=== PATIENT | female | born 1975 | race Hispanic/Latino ===

== ENCOUNTER 2017-02-12 22:23 | Emergency (ER) | payer SELFPAY ==
[2017-02-12 22:44] VITALS: O2SAT 95
--- NOTE | 2017-02-13 00:33 | CT ---
PROCEDURE: Soft Tissue Neck w/Contrast CLINICAL HISTORY: 41 years Female Left facial pain/hx of myelitis COMPARISON: None. TECHNIQUE: Contiguous axial images obtained through the neck following IV contrast. Reformatted images obtained. This exam was performed according to our department optimization program which includes automated exposure control, adjustment of the mA and/or kv according to patient size and/or use of iterative reconstruction technique. FINDINGS: No fluid collection to suggest an abscess is visualized. The visualized intracranial structures and post septal orbits appear grossly unremarkable. The parotid glands, submandibular glands and thyroid gland appear unremarkable. The lung apices are clear. The pharynx and larynx appear unremarkable. Scattered lymph nodes in the neck likely reactive. No enlarged nodes or mass lesions are identified. Dental mook is visualized within the first left-sided maxillary premolar tooth. No fluid or significant mucosal thickening in the visualized paranasal sinuses. IMPRESSION: Dental mook within the first left-sided maxillary premolar tooth. Electronically signed by: Wilmer Aguayo MD 02/13/2017 12:32 AM CDT
[2017-02-13] MEDS ORDERED: INSULIN, REG.(HUMAN) 100 U/ML VIAL SUBCU ONE (00:40)
[2017-02-13] MEDS ORDERED: CLINDAMYCIN HCL CAP 150 MG CAP PO ONE (00:41)
--- NOTE | 2017-02-13 00:45 | ED.PDOC ---
History of Present Illness - General Chief Complaint: General Stated Complaint: L Sided Facial Pain Time Seen by Provider: 02/12/17 23:26 Source: patient, RN notes reviewed, Vital Signs reviewed Exam Limitations: no limitations - History of Present Illness Initial Comments: Patient is a 41 y/o female who has had left facial pain for the past 2 days. The pain is moderate to severe, achey and sharp. She has a history of Collins's palsy and usually does not feel anything on that side of her face. She does have a history of a myositis in one of the muscles of her face several years ago. She feels like the pain is going into her ear but her ear does not hurt. She denies any mouth or tooth pain. Timing/Duration: getting worse, other - 2 days Severity: moderate, severe Improving Factors: nothing Worsening Factors: nothing Associated Symptoms: denies symptoms Allergies/Adverse Reactions: Allergies NO KNOWN ALLERGY Allergy (Verified 02/12/17 22:44) Home Medications: Ambulatory Orders Gabapentin 400 mg PO DAILY 02/12/17 Insulin Detemir [Levemir] 25 unit SUBCU DAILY 02/12/17 Lisinopril 40 mg PO DAILY 02/12/17 Metformin HCl 1,000 mg PO BID 02/12/17 glyBURIDE [Diabeta] 5 mg PO DAILY 02/12/17 Clindamycin HCl 300 mg PO TID #21 cap 02/13/17 Gabapentin 100 mg PO TID #21 cap 02/13/17 Review of Systems - Review of Systems Constitutional: States: no symptoms reported. Denies: chills, fever EENTM: States: no symptoms reported Respiratory: States: no symptoms reported Cardiology: States: no symptoms reported Gastrointestinal/Abdominal: States: no symptoms reported Genitourinary: States: no symptoms reported Musculoskeletal: States: no symptoms reported Skin: States: no symptoms reported Neurological: States: no symptoms reported Endocrine: States: no symptoms reported Hematologic/Lymphatic: States: no symptoms reported All other Systems: Reviewed and Negative Past Medical History (General) - Patient Medical History Hx Stroke: Yes Hx Congestive Heart Failure: No Hx Hypertension: Yes Hx Diabetes: Yes Hx Cancer: No Hx Hepatitis C: No Surgical History: cholecystectomy - Vaccination History Hx Tetanus, Diphtheria Vaccination: No Hx Influenza Vaccination: Yes Hx Pneumococcal Vaccination: Yes - Social History Hx Tobacco Use: No Hx Chewing Tobacco Use: No Hx Alcohol Use: No Hx Substance Use: No Hx Substance Use Treatment: No Hx Depression: No Feels Threatened In Home Enviroment: No Feels Threatened In a Relationship: No Hx Physical Abuse: No Hx Emotional Abuse: No Hx Suspected Abuse: No - Female History Patient is a Female of Child Bearing Age (10 -59 yrs old): Yes Patient : No Family Medical History - Family History Grandparents Family History: Unknown Physical Exam - Physical Exam General Appearance: Alert, Comfortable, No apparent distress Eye Exam: bilateral normal Ears, Nose, Throat: hearing grossly normal, normal pharynx, other - dental caries Neck: non-tender, full range of motion, supple, normal inspection Respiratory: lungs clear, normal breath sounds, no respiratory distress, no accessory muscle use Cardiovascular/Chest: regular rate, rhythm, no edema, no gallop, no murmur Gastrointestinal/Abdominal: normal bowel sounds, non tender, soft Extremity: normal range of motion, normal inspection, no pedal edema, no calf tenderness Neurologic: alert, normal mood/affect, oriented x 3 Skin Exam: normal color Lymphatic: no adenopathy Progress - Progress Progress: 02/13/17 00:47 CT was performed due to Patient's past history of myositis in her facial muscles. The only thing noted on CT was dental caries. Therefore, I will treat Patient for a pulpitis with antibiotics. Additionally, Patient was counseled about her elevated sugars and her anemia. She just moved here, therefore, she needs to establish a PCP [facility]. - Results/Orders Results/Orders: 02/12/17 22:38 Temperature 98.2 F Pulse Rate [L 78 Arm] Respiratory 18 Rate Blood Pressure 124/80 [L Arm] O2 Sat by Pulse 95 Oximetry 02/12/17 23:29 Hold Metformin x 48Hrs [id number] Laboratory Results WBC 6.9 K/mm3 (4.8-10.8) 02/12/17 23:40 RBC 5.22 M/mm3 (4.20-5.40) 02/12/17 23:40 Hgb 9.8 gm/dL (12.0-16.0) L 02/12/17 23:40 Hct 32.4 % (36.0-47.0) L 02/12/17 23:40 MCV 62.0 fl (81.0-99.0) L 02/12/17 23:40 MCH 18.7 pg (27.0-31.0) L 02/12/17 23:40 MCHC 30.4 g/dL (33.0-37.0) L 02/12/17 23:40 RDW 19.4 % (11.5-14.5) H 02/12/17 23:40 Plt Count 332 K/mm3 (130-400) 02/12/17 23:40 MPV 8.9 fl (7.40-10.4) 02/12/17 23:40 Absolute Neuts (auto) 3.70 K/uL (1.8-6.8) 02/12/17 23:40 Absolute Lymphs (auto) 2.50 K/uL (1.0-3.4) 02/12/17 23:40 Absolute Monos (auto) 0.40 K/uL (0.2-0.8) 02/12/17 23:40 Absolute Eos (auto) 0.10 K/uL (0.0-0.4) 02/12/17 23:40 Absolute Basos (auto) 0.10 K/uL (0.0-0.1) 02/12/17 23:40 Neutrophils % 53.7 % (42.0-78.0) 02/12/17 23:40 Lymphocytes % 36.7 % (20.0-50.0) 02/12/17 23:40 Monocytes % 6.0 % (2.0-9.0) 02/12/17 23:40 Eosinophils % 1.7 % (1.0-5.0) 02/12/17 23:40 Basophils % 1.9 % (0.0-2.0) 02/12/17 23:40 Normal RBC Morphology 3+aniso 3+hypochromia 3+microcytosis 3+poikilocytosis 02/12/17 23:40 Normal RBC Morphology 3+aniso 3+hypochromia 3+microcytosis 3+poikilocytosis 02/12/17 23:40 Normal RBC Morphology 3+aniso 3+hypochromia 3+microcytosis 3+poikilocytosis 02/12/17 23:40 Normal RBC Morphology 3+aniso 3+hypochromia 3+microcytosis 3+poikilocytosis 02/12/17 23:40 Sodium 136 mmol/L (135-145) 02/12/17 23:40 Potassium 4.3 mmol/L (3.6-5.0) 02/12/17 23:40 Chloride 100 mmol/L (101-111) L 02/12/17 23:40 Carbon Dioxide 25 mmol/L (21-31) 02/12/17 23:40 Anion Gap 15.3 (12-18) 02/12/17 23:40 BUN 20 mg/dL (7-18) H 02/12/17 23:40 Creatinine 0.71 mg/dL (0.6-1.3) 02/12/17 23:40 BUN/Creatinine Ratio 28.2 (10-20) H 02/12/17 23:40 Random Glucose 393 mg/dL (70-105) H 02/12/17 23:40 Serum Osmolality 290.9 mOsm/L (275-295) 02/12/17 23:40 Calcium 8.6 mg/dL (8.4-10.2) 02/12/17 23:40 - EKG/XRAY/CT CT: Soft tissue neck: Only dental caries noted. CT Ordered: Yes Departure - Departure Clinical Impression: Acute pulpitis Diabetes mellitus Qualifiers: Diabetes mellitus type: type 2 Diabetes mellitus complication status: with hyperglycemia Qualified Code(s): E11.65 - Type 2 diabetes mellitus with hyperglycemia Anemia Qualifiers: Anemia type: unspecified type Qualified Code(s): D64.9 - Anemia, unspecified Time of Disposition: 00:50 Disposition: Discharge to Home or Self Care Condition: Good Departure Forms: ED Discharge - Pt. Copy, Patient Portal Self Enrollment Instructions: Anemia: How Food and Vitamins Can Help, Anemia Diet: diabetic diet Prescriptions: Clindamycin HCl 300 mg PO TID #21 cap Gabapentin 100 mg PO TID #21 cap Home Medications: Ambulatory Orders Gabapentin 400 mg PO DAILY 02/12/17 Insulin Detemir [Levemir] 25 unit SUBCU DAILY 02/12/17 Lisinopril 40 mg PO DAILY 02/12/17 Metformin HCl 1,000 mg PO BID 02/12/17 glyBURIDE [Diabeta] 5 mg PO DAILY 02/12/17 Clindamycin HCl 300 mg PO TID #21 cap 02/13/17 Gabapentin 100 mg PO TID #21 cap 02/13/17 Additional Instructions: Establish care with primary care physician [facility] (names and numbers of clinics handout). Follow up in ED if symptoms worsen.
[2017-02-13 01:16] VITALS: BP 122/79; TEMP 97.3
== END 2017-02-13 01:15 | disposition home or self-care (01) ==
LOC: ER 22:23
DX: K04.01 Reversible pulpitis (principal); E11.65 Type 2 diabetes mellitus with hyperglycemia; D64.9 Anemia, unspecified; Z87.39 Personal history of other diseases of the musculoskeletal system and connective tissue; I10 Essential (primary) hypertension; Z86.73 Personal history of transient ischemic attack (TIA), and cerebral infarction without residual deficits; Z79.4 Long term (current) use of insulin; Z79.899 Other long term (current) drug therapy